=== PATIENT | male | born 1945 | race Two or more races ===

== ENCOUNTER 2020-03-03 23:31 | Inpatient (IN) | payer MEDICARE, OTHER ==
[~2020-03-03] VITALS: Ht 154.9 cm; Wt 63.2 kg
--- NOTE | 2020-03-03 23:40 | NUR ---
PT AAOX2 TO NAME AND PLACE. [facility] FROM [facility] FOR EVALUATION OF COVID. PER PA PT WAS SAT 78 ON ROOM AIR UPON ARRIVAL, PLACED ON 2L NC SAT 92% NOW. ALSO, PER PA STATED THAT PT HAD A XRAY TODAY AND SHOWED PNEUMONIA. UPON ASSESSMENT PT HAS NO COMPLAINTS. PLACED ON MONITOR AND PULSE OX. VSS. SAT 97% ON 3L NC. EMT AT BEDSIDE FOR EKG.
--- NOTE | 2020-03-03 23:45 | NUR ---
CENTRAL COMMUNICATIONS SPECIALIST AT BEDSIDE FOR LAB COLLECTION.
--- NOTE | 2020-03-03 23:47 | NUR ---
URINE SENT TO LAB.
[2020-03-03] MEDS ORDERED: LIDOCAINE 2% JEL UROJET 10 ML MM ONE (23:48)
[2020-03-03] MEDS ORDERED: FERR325T23 PO (23:49)
[2020-03-03] MEDS ORDERED: FLUO20CA36 PO (23:49)
[2020-03-03] MEDS ORDERED: DILT60TA35 PO (23:49)
[2020-03-03] MEDS ORDERED: CEFE1FRO IV (23:49)
[2020-03-03] MEDS ORDERED: DIGO125T PO (23:49)
[2020-03-03] MEDS ORDERED: APIX2.5T PO (23:49)
[2020-03-03] MEDS ORDERED: LINA5TAB PO (23:49)
[2020-03-03] MEDS ORDERED: PANT40TA2 PO (23:49)
[2020-03-03] MEDS ORDERED: AMIO200T4 PO (23:49)
[2020-03-03 23:59] LABS: BASOPHILS # (AUTO) 0.1 /CMM (0.0-0.2); BASOPHILS % (AUTO) 1.3 % (0.0-2.0); EOSINOPHILS % (AUTO) 0.2 % (0.0-6.0); HEMATOCRIT 38 % (39-51); HEMOGLOBIN 12.1 g/dL (13.5-17.5); LYMPHOCYTES # (AUTO) 0.4 /CMM (0.8-4.8); LYMPHOCYTES % (AUTO) 4.3 % (20.0-44.0); MEAN CORPUSCULAR HGB CONC 32 g/dl (31.0-36.0); MEAN CORPUSCULAR VOLUME 94 fL (80-96); MONOCYTES # (AUTO) 0.4 /CMM (0.1-1.30); MONOCYTES % (AUTO) 4.6 % (2.0-12.0); NEUTROPHILS # (AUTO) 7.7 /CMM (1.8-8.9); NEUTROPHILS % (AUTO) 89.6 % (43.0-81.0); PLATELET COUNT (AUTO) 215 /CMM (150-450); RED BLOOD CELL COUNT(AUTO) 4.09 MIL/uL (4.5-6.0); WHITE BLOOD COUNT (AUTO) 8.6 K/uL (4.3-11.0)
[2020-03-04 00:06] LABS: CALCIUM, SERUM 8.8 mg/dL (8.5-10.1); CARBON DIOXIDE 24 mmol/L (21-32); CHLORIDE 107 mmol/L (98-107); CREATININE 2.1 mg/dL (0.6-1.3); GLUCOSE 157 mg/dL (74-106); POTASSIUM 4.5 mmol/L (3.5-5.1); SODIUM SERUM 140 mmol/L (136-145); UREA NITROGEN, BLOOD 73 mg/dL (7-18)
[2020-03-04 00:10] LABS: BILIRUBIN,URINE Negative (NEGATIVE); BLOOD, URINE Negative Ery/uL (NEGATIVE); COLOR,URINE Yellow (YELLOW); KETONES,URINE Negative (NEGATIVE); LEUKOCYTE ESTERASE ,URINE Negative (NEGATIVE); NITRITE, URINE Negative (NEGATIVE); PH,URINE 5.5 (5.0-8.0); PROTEIN,URINE 30 mg/dl (NEGATIVE); UGLUCOSE Negative (NEGATIVE); UROBILINOGEN,URINE 0.2 EU/dL (0.2)
--- NOTE | 2020-03-04 00:12 | NUR ---
COVID TEST SENT TO LAB
[2020-03-04 00:13] LABS: APPEARANCE,URINE SLIGHTLY CLOUDY (CLEAR)
[2020-03-04 00:14] LABS: ALANINE AMINOTRANSFERASE 73 U/L (12-78); ALBUMIN 2.2 g/dL (3.4-5.0); ALKALINE PHOSPHATASE 99 U/L (46-116); ASPARTATE AMINOTRANSFERASE 67 U/L (15-37); BILIRUBIN,DIRECT 0.1 mg/dL (0.0-0.2); BILIRUBIN,TOTAL 0.3 mg/dL (0.2-1.0); TOTAL PROTEIN, SERUM 6.4 g/dL (6.4-8.2)
--- NOTE | 2020-03-04 00:24 | NUR ---
Patient is resting comfortably in bed. Easily aroused. VSS.
[2020-03-04 00:45] LABS: BACTERIA,URINE Few /HPF (None Seen); SQUAMOUS EPITHELIAL CELL,UR Rare /HPF (None Seen)
[2020-03-04] MEDS ORDERED: VANCOMYCIN 1 GM in IV D5W 250 ML IV ONE (01:30)
[2020-03-04] MEDS ORDERED: PIPERACILLIN /TAZOBACTAM 3.375 G in IV D5W 50 ML IV ONE (01:30)
[2020-03-04] MEDS ORDERED: VANCOMYCIN 1 GM VIAL ONE (01:38)
[2020-03-04] MEDS ORDERED: PIPERACILLIN /TAZOBACTAM 3.375 G VIAL IV ONE (01:38)
--- NOTE | 2020-03-04 02:12 | NUR ---
REPORT GIVEN TO KSENIA ORELLANA FOR RETA
--- NOTE | 2020-03-04 02:18 | NUR ---
PT TRANSFERED PER ACLS PROTOCOL
[2020-03-04 02:45] VITALS: BP 113/70
--- NOTE | 2020-03-04 02:45 | NUR ---
EARLENE RN NOTE PATIENT ARRIVED TO UNIT AROUND THIS TIME VIA GURNEY. PATIENT IS AWAKE, ALERT, ORIENTED X2. ABLE TO MAKE NEEDS KNOWN. SPEECH IS CLEAR. COOPERATIVE, EXHIBITS EPISODES OF ANGER. BREATHING IS EVEN AND NON LABORED. NO SOB NOTED AT THIS TIME. ON O2 2 LPM VIA NC. IV SITE ON RIGHT HAND, PATENT. CAPILLARY REFILL < 3 SECONDS. ABDOMEN IS SOFT AND NON TENDER. PATIENT IS INCONTINENT. BILATERAL LOWER EXTREMITIES ARE RIGID. UNABLE TO AMBULATE. BILATERAL ARMS NOTED WITH MULTIPLE RED/PURPLE SPOTS OF DISCOLORATION. NO C/O OF PAIN. BED LOWERED TO LOW POSITION FOR SAFETY. CALL LIGHT IS WITHIN EASY REACH. WILL CONTINUE TO MONITOR.
[2020-03-04] MEDS ORDERED: IV NS 0.9% 1,000 ML IV ONE (03:30)
[2020-03-04 04:00] VITALS: BP_SYST 113; BP_SYST 120; BP_DIAS 58; BP_DIAS 68
[2020-03-04 06:17] LABS: BASOPHILS % (AUTO) 0.3 % (0.0-2.0); EOSINOPHILS % (AUTO) 0.1 % (0.0-6.0); HEMATOCRIT 43 % (39-51); HEMOGLOBIN 13.2 g/dL (13.5-17.5); LYMPHOCYTES # (AUTO) 0.3 /CMM (0.8-4.8); LYMPHOCYTES % (AUTO) 2.9 % (20.0-44.0); MEAN CORPUSCULAR HGB CONC 31 g/dl (31.0-36.0); MEAN CORPUSCULAR VOLUME 95 fL (80-96); MONOCYTES # (AUTO) 0.4 /CMM (0.1-1.30); MONOCYTES % (AUTO) 3.5 % (2.0-12.0); NEUTROPHILS # (AUTO) 9.7 /CMM (1.8-8.9); NEUTROPHILS % (AUTO) 93.2 % (43.0-81.0); PLATELET COUNT (AUTO) 202 /CMM (150-450); RED BLOOD CELL COUNT(AUTO) 4.49 MIL/uL (4.5-6.0); WHITE BLOOD COUNT (AUTO) 10.4 K/uL (4.3-11.0)
[2020-03-04 06:30] LABS: CARBON DIOXIDE 23 mmol/L (21-32); CHLORIDE 105 mmol/L (98-107); CREATININE 2.2 mg/dL (0.6-1.3); GLUCOSE 211 mg/dL (74-106); POTASSIUM 4.2 mmol/L (3.5-5.1); SODIUM SERUM 139 mmol/L (136-145); UREA NITROGEN, BLOOD 74 mg/dL (7-18)
--- NOTE | 2020-03-04 06:46 | NUR ---
EARLENE RN CLOSING NOTE PATIENT REMAINED STABLE SINCE ADMISSION. ALL NEEDS ATTENDED AND MET. NO SIGNIFICANT CHANGES NOTED. WILL ENDORSE TO AM SHIFT RN FOR CONTINUATION OF CARE.
[2020-03-04] MEDS ORDERED: FEE PK DOSING 1 MIN EA MC ONE (07:23)
--- NOTE | 2020-03-04 07:51 | NUR ---
RN TELE1- DOC MEDICATION TALKED FACE TO FACE WITH DR. DORSEY IN REGARDS TO MEDICATION.
[2020-03-04 08:00] VITALS: BP 111/36
[2020-03-04] MEDS ORDERED: DEXTROSE 50%-WATER 50 ML DISP.SYRIN IV PRN (08:00)
[2020-03-04] MEDS ORDERED: Medication Not On Formulary EA (Cefepime Hcl/Dextrose, Iso-Osm (Cefepime 1 Gm Injection) IV SCH (09:00)
[2020-03-04] MEDS: FERROUS SULFATE (325 MG) 325 MG/TAB TABLET PO SCH (09:07)
[2020-03-04] MEDS: LINAGLIPTIN 5 MG TABLET PO SCH (09:07)
[2020-03-04] MEDS: PANTOPRAZOLE 40 MG TABLET.DR PO SCH (09:07)
[2020-03-04] MEDS: FLUOXETINE HCL 20 MG CAPSULE PO SCH (09:08)
[2020-03-04] MEDS: AMIODARONE HCL 200 MG TABLET PO SCH (09:09)
[2020-03-04] MEDS: APIXABAN 2.5 MG TABLET PO SCH ×2 (09:34→17:04)
[2020-03-04] MEDS: PIPERACILLIN /TAZOBACTAM 3.375 G in IV D5W 50 ML IV SCH ×4 (09:36→23:32)
[2020-03-04 12:00] VITALS: BP 124/46
[2020-03-04] MEDS: BLOOD SUGAR DIAGNOSTIC 1 EACH STRIP IN SCH ×3 (12:15→21:02)
[2020-03-04] MEDS: DILTIAZEM HCL 30 MG TABLET PO SCH ×3 (12:16→23:42)
[2020-03-04] MEDS ORDERED: DIGOXIN 0.125 MG TABLET PO SCH (13:00)
[2020-03-04 13:40] LABS: C-REACTIVE PROTEIN 23.8 mg/dL (0.0-0.9)
[2020-03-04 16:00] VITALS: BP 103/48
--- NOTE | 2020-03-04 17:00 | NUR ---
WEB PRESS ROLL TENDER PATIENT FOUND, WITH IV IN HIS LANDS PATIENT WAS BLEEDING FROM IV SIGHT. PATIENT DENIES PULLING IV OUT . PATIENT HARD STICK ATTEMPTED 2X TIMES. REQUESTING MID LINE FROM CHARGE NURSE AND FREIGHT CLAIM INVESTIGATOR
--- NOTE | 2020-03-04 18:30 | NUR ---
TIGHT BARREL INSPECTOR NO CHANGE IN PATIENT CONDITION AT THIS TIME PATIENT REMAIN STABLE PATIENT DOES NOT HAVE A IV PLACE PATIENT PULLED IV . REQUESTED FOR MID LINE INSERTION ORDERS ORDERS, HOUSE SUP AWARE, CHARGE NURSE AWARE. BED LOCKED LOWEST POSITION CALL LIGHT WITH IN REACH ALL SAFETY MEASURE IMPLEMENTED PER HOSPITAL POLICY
[2020-03-04 20:00] VITALS: BP 90/39
--- NOTE | 2020-03-04 20:20 | NUR ---
TELE-1/TECHNICIAN HELPER INSTRUMENT MIDLINE NURSE PLACED MIDLINE LEFT UPPER ARM. PT TOLERATED WELL WILL CONTINUE TO MONITOR.
[2020-03-04] MEDS: INSULIN REGULAR, HUMAN 100 UNIT/ML 3 ML VIAL SQ PRN (21:09)
--- NOTE | 2020-03-04 22:36 | NUR ---
TELE-1/GIZZARD SKIN REMOVER REPORT TO JANET RN FOR CONT OF CARE.
--- NOTE | 2020-03-04 22:48 | NUR ---
RECEIVED REPORT TO CRUZITO MARTÍNEZ FOR RETA
--- NOTE | 2020-03-04 23:20 | NUR ---
2320 DR NICKY MARMOLEJO MADE AWARE OF PATIENT'S EPISODES OF TRYING TO PULL OUT LINES INCLUDING NEW MIDLINE WITH ORDER TO APPLY BILATERAL SOFT WRIST RESTRAINTS. ORDER NOTED AND CARRIED OUT.
[2020-03-05] VITALS (18 sets, daily range): BP systolic 60–105; BP diastolic 17–78
[2020-03-05] MEDS: VANCOMYCIN 0.75 GM in IV D5W 250 ML IV SCH (01:04)
[2020-03-05] MEDS: PIPERACILLIN /TAZOBACTAM 3.375 G in IV D5W 50 ML IV SCH ×2 (05:07→12:39)
[2020-03-05] MEDS: DILTIAZEM HCL 30 MG TABLET PO SCH ×4 (05:53→23:20)
[2020-03-05 06:36] LABS: BASOPHILS % (AUTO) 0.1 % (0.0-2.0); HEMATOCRIT 35 % (39-51); HEMOGLOBIN 10.8 g/dL (13.5-17.5); LYMPHOCYTES # (AUTO) 0.4 /CMM (0.8-4.8); LYMPHOCYTES % (AUTO) 1.5 % (20.0-44.0); MEAN CORPUSCULAR HGB CONC 31 g/dl (31.0-36.0); MEAN CORPUSCULAR VOLUME 95 fL (80-96); MONOCYTES # (AUTO) 0.3 /CMM (0.1-1.30); MONOCYTES % (AUTO) 1.1 % (2.0-12.0); NEUTROPHILS # (AUTO) 23.4 /CMM (1.8-8.9); NEUTROPHILS % (AUTO) 97.3 % (43.0-81.0); PLATELET COUNT (AUTO) 184 /CMM (150-450); RED BLOOD CELL COUNT(AUTO) 3.73 MIL/uL (4.5-6.0); WHITE BLOOD COUNT (AUTO) 24.1 K/uL (4.3-11.0)
--- NOTE | 2020-03-05 06:54 | NUR ---
RN CLOSING NOTES PT SLEEPING ON BED NO SIGN AND SYMPTOMS OF RESPIRATORY DISTRESS SPO2>92%. ON BILATERAL RESTRAINTS, ON TELE MONITOR WITH READING SR 80'S, ALL NEEDS ATTENDED DROPLET ISOLATION MAINTAINED TO R/O COVID 19 PENDING RESULTS SAFETY MEASURE MAINTAINED CALL LIGHT WITHIN REACH WILL ENDORSED TO AM SHIFT NURSE
[2020-03-05 06:56] LABS: BAND % (MANUAL) 22 % (0.0-5.0); LYMPHOCYTES % (MANUAL) 2 % (16-48); METAMYELOCYTES % 1 % (0-0); MONOCYTES % (MANUAL) 2 % (0-11.0); MYELOCYTES % 1 % (0-0); NEUTROPHILS % (MANUAL) 72 (42-76)
[2020-03-05 07:07] LABS: ALANINE AMINOTRANSFERASE 75 U/L (12-78); ALBUMIN 1.9 g/dL (3.4-5.0); ALKALINE PHOSPHATASE 79 U/L (46-116); ASPARTATE AMINOTRANSFERASE 84 U/L (15-37); BILIRUBIN,TOTAL 0.5 mg/dL (0.2-1.0); CALCIUM, SERUM 8.5 mg/dL (8.5-10.1); CARBON DIOXIDE 21 mmol/L (21-32); CHLORIDE 103 mmol/L (98-107); CREATININE 3.2 mg/dL (0.6-1.3); GLUCOSE 126 mg/dL (74-106); MAGNESIUM 1.8 mg/dL (1.8-2.4); PHOSPHORUS 5.3 mg/dL (2.5-4.9); POTASSIUM 4.3 mmol/L (3.5-5.1); SODIUM SERUM 139 mmol/L (136-145); TOTAL PROTEIN, SERUM 6.2 g/dL (6.4-8.2)
[2020-03-05 07:16] LABS: UREA NITROGEN, BLOOD 82 mg/dL (7-18)
[2020-03-05] MEDS: BLOOD SUGAR DIAGNOSTIC 1 EACH STRIP IN SCH ×4 (09:02→23:20)
[2020-03-05] MEDS: PANTOPRAZOLE 40 MG TABLET.DR PO SCH (09:51)
[2020-03-05] MEDS: FLUOXETINE HCL 20 MG CAPSULE PO SCH (09:51)
[2020-03-05] MEDS: LINAGLIPTIN 5 MG TABLET PO SCH (09:51)
[2020-03-05] MEDS: FERROUS SULFATE (325 MG) 325 MG/TAB TABLET PO SCH (09:51)
[2020-03-05] MEDS: APIXABAN 2.5 MG TABLET PO SCH ×2 (09:51→17:56)
[2020-03-05] MEDS: AMIODARONE HCL 200 MG TABLET PO SCH (09:54)
[2020-03-05] MEDS: INSULIN REGULAR, HUMAN 100 UNIT/ML 3 ML VIAL SQ PRN ×2 (09:56→18:43)
--- NOTE | 2020-03-05 09:57 | NUR ---
WOUND CARE CONSULT: REVIEWED CHART AND NURSING DOCUMENTATION INCLUDING PHOTOS FROM ADMISSION WHICH SHOW PURPLE DISCOLORATION TO BILATERAL ARMS. RECOMMENDATIONS MADE FOR SKIN PROTECTION. DISCUSSED WITH NURSING STAFF. CURRENT SHEILA SCORE IS 13. WILL SEE PRN. VOGT IN AGREEMENT WITH PLAN OF CARE.
[2020-03-05] MEDS ORDERED: Z GUARD REMEDY 2 OZ OINT TP PRN (10:00)
[2020-03-05] MEDS: Z GUARD REMEDY 2 OZ OINT TP SCH (10:31)
--- NOTE | 2020-03-05 11:03 | NUR ---
LIFE SKILLS INSTRUCTOR NOTES RECEIVED REPORT FROM [facility] FOR RETA.
--- NOTE | 2020-03-05 13:21 | NUR ---
RN NOTES ACCUCHECK 137 MG/DL, NO INSULIN GIVEN AT THIS TIME, PATIENT IS NPO.
[2020-03-05 13:46] LABS: THYROID STIMULATING HORMONE 0.858 uIU/mL (0.358-3.74)
[2020-03-05] MEDS: DOXYCYCLINE 100 MG in IV NS 0.9% 100 ML IV SCH (17:53)
[2020-03-05] MEDS ORDERED: MEROPENEM IV SCH (18:00)
[2020-03-05] MEDS ORDERED: NS 0.9% IV SCH (18:00)
--- NOTE | 2020-03-05 19:07 | NUR ---
BUNCHER HAND NOTE PATIENT RESTING COMFORTABLY, AOX 2, CONFUSED, ON 2 L O2 NASAL CANULA,SINUS RHYTHM JR HIGH 70s, NO SIGNS OF PAIN,BENNIE MIDLINE FLUSHES WELL, SITE CLEAR. TURNED AND REPOSITIONED Q2 HOURS, PM CARE DONE. ALL NEEDS MET AT THIS TIME. ALL DUE MEDS GIVEN. CALL LIGHT WITHIN REACH. SAFETY MEASURES IN PLACE, ENDORSED TO NEXT SHIFT FOR RETA.
--- NOTE | 2020-03-05 20:00 | NUR ---
RN NOTES RECEIVED PT, AWAKE,SB ON TELE MONITOR HR-50'S, ON BILATERAL SOFT WRIST RESTRAINT, NOTICED BLOOD PRESSURE WAS LOW 83/30, SIDERAILS UPX2, CONTINUE TO MONITOR
--- NOTE | 2020-03-05 20:30 | NUR ---
RN NOTES RECHECK PATIENT BLOOD PRESSURE , BP-82/58, WILL CALL THE PRIMARY DOCTOR TO INFORM PATIEN BLOOD PRESSURE
[2020-03-05] MEDS ORDERED: DOXYCYCLINE 100 MG in IV NS 0.9% 100 ML IV SCH (21:00)
--- NOTE | 2020-03-05 21:00 | NUR ---
RN NOTES PATIENT HR WAS DROPPING TO 30'S WENT INSIDE OF PATIENTS ROOM AND FOUND PT. IS UNRESPONSIVE, RAPID RESPONSE WAS CALLED,
--- NOTE | 2020-03-05 21:10 | NUR ---
RN NOTES TREE EXPERT TEAM CAME AND PATIENT WENT TO ASYSTOLE, CODE BLUE WAS CALLED
--- NOTE | 2020-03-05 21:13 | NUR ---
RN NOTES EPI WAS GIVEN BY THE ICU CHARGE NURSE HALEY
--- NOTE | 2020-03-05 21:15 | NUR ---
RN NOTES ATROPINE WAS GIVEN , PT HAS A PULSE HR-39, BLOOD PRESSURE 80/32, JUNCTIONAL IN RHYTHM
--- NOTE | 2020-03-05 21:18 | NUR ---
RN NOTES NS BOLUS STARTED JUNCTIONAL IN RHYTHM, BP 82/34
--- NOTE | 2020-03-05 21:21 | NUR ---
RN NOTES ER DOCTOR INTUBATE THE PATIENT HR-48, JUNCTIONAL IN RHYTHM, BP 77/33
[2020-03-05] MEDS ORDERED: FENTANYL CITRAT IV 2,500 MCG in IV NS 0.9% 200 ML IV STA (21:26)
[2020-03-05] MEDS ORDERED: MIDAZOLAM HCL 100 MG in IV NS 0.9% 80 ML IV STA (21:26)
--- NOTE | 2020-03-05 21:28 | NUR ---
RN NOTES PT. WAS INTUBATED, ET TUBE SIZE 7.5, JUNCTIONAL HR-52, BP 73/31, O2 92%
[2020-03-05] MEDS ORDERED: PROPOFOL 100 ML IV PRN (21:30)
[2020-03-05] MEDS ORDERED: NOREPINEPHRINE 32 MG in IV NS 0.9% 218 ML IV PRN (21:30)
[2020-03-05] MEDS ORDERED: NOREPINEPHRINE 32 MG in IV NS 0.9% 218 ML IV STA (21:33)
--- NOTE | 2020-03-05 21:34 | NUR ---
RN NOTES CODE ENDED, JUNCTIONAL RHYTHM, BP 61/17, O2 SAT-95%, VENT SETTING TV-500, AC-12, FIO2-100%, NO PEEP
--- NOTE | 2020-03-05 21:40 | NUR ---
RN NOTES ER DOCTOR INSERTED THE IJ
[2020-03-05] MEDS ORDERED: NOREPINEPHRINE 4 MG/4 ML AMPUL IV ONE (21:41)
--- NOTE | 2020-03-05 21:42 | NUR ---
RT at 2099, rapid response was called for pt in room 114-2. at 2109, code blue was called. compressions was performed and pt was placed on nrb because is a rule out for covid. dr arrived and pt with intubated with 7.5 ett at 22 cm at the lip. vent settings were AC 12 500 100%. bilateral breath sounds heard post intubation. ETT secured with anchor fast.
--- NOTE | 2020-03-05 21:45 | NUR ---
RN NOTES LEVOPHED STARTED 0.1 MCG BP-61/37
--- NOTE | 2020-03-05 21:50 | NUR ---
RN NOTES LEVOPHED INCREASED TO 0.2MCG BP 64/26
[2020-03-05] MEDS ORDERED: PROPOFOL 100 ML ONE (21:54)
--- NOTE | 2020-03-05 21:55 | NUR ---
RN NOTES LEVOPHED INCREASED TO 0.3MCG BP 64/23
[2020-03-05] MEDS ORDERED: NS 0.9% IV PRN (22:00)
[2020-03-05] MEDS ORDERED: NOREPINEPHRINE IV PRN (22:00)
[2020-03-05] MEDS ORDERED: PANTOPRAZOLE 40 MG VIAL IV SCH (22:00)
--- NOTE | 2020-03-05 22:15 | NUR ---
RN/ICU-TRANSFERRED TO ICU VIA BED FROM TELE 1 PER ACLS PROTOCOL , S/P CODE BLUE FOR CARDIOPULMONARY ARREST. NURSING FOCUS:ALTERED CARDIAC TISSUE PERFUSION R/T DIAGNOSIS. R/O COVID. ON CONTACT AND SPECIAL DROPLET PRECAUTIONS,ROUTINE ICU ADMISSION CARE INITIATED. ON THE VENT PER ETT W/ INITIAL VENT SETTINGS: AC-12, VT-500, FIO2-100%, HOOKED UP TO THE STRAIGHTENER HAND W/ HR-78/MIN HR SR, BP-88/51, ON .5MCG/KG/MIN. OF LEVOPHED DRIP. WILL TITRATE ACCORDINGLY TO KEEP SBP>90. ON DIPRIVAN DRIP AT 10MCG/KG/MIN, POST SEDATED W/ SAS-3, W/ OCCASIONAL AGITATION, WITH SALINA. SOFT WRIST RESTRAINTS ON PER PROTOCOL. AFEBRILE. PT. IS A FULL CODE. NO S/S OF PAIN OR DISTRESS.
[2020-03-05] MEDS ORDERED: NOREPINEPHRINE IV STA (22:34)
[2020-03-05] MEDS ORDERED: NS 0.9% IV STA (22:34)
--- NOTE | 2020-03-05 22:50 | NUR ---
RN NOTES PT WAS TRANSFERRED TO ICU
--- NOTE | 2020-03-05 23:00 | NUR ---
RN/ICU- PT. REMAINS CRITICALLY ILL, ON THE VENT PER ETT, ON DIPRIVAN DRIP AND LEVOPHED DRIP, TITRATED ACCORDINGLY PER PROTOCOL. REPORT GIVEN TO DIOGENES MARTÍNEZ.
[2020-03-05] MEDS ORDERED: NOREPINEPHRINE 8 MG in IV NS 0.9% 218 ML IV PRN (23:15)
--- NOTE | 2020-03-05 23:23 | NUR ---
RT NOTE ABG taken and critical results given to Ordering Physician. RR increased to 16 and Tidal Volume increased to 600 per ordering physician req. Will continue to monitor. Addendum: 03/06/20 at 0025 by BULMARO HANNAH RT Amended: Links added.
[2020-03-05 23:30] LABS: ABG BASE EXCESS -15.2 mmol/L; ABG OXYGEN SATURATION 91.4 % (92.0-98.5); ABG PCO2 46.6 mmHg (35.0-45.0); ABG PH 7.098 (7.350-7.450); ABG PO2 72.9 mmHg (75.0-100.0); AaDO2 593.5 mmHg; COHb 0.7 % (0.5-1.5); MetHb 0.3 % (0.0-1.5); O2Hb 90.5 % (94.0-97.0); SITE, ABG Left Radial
[2020-03-06] VITALS (61 sets, daily range): BP systolic 58–179; BP diastolic 15–152
--- NOTE | 2020-03-06 | NUR ---
ICU/INVESTIGATOR CLAIMS RECEIVED PT ORALLY INTUBATED WITH 7.5 ETT 23CM AT THE LIP AC 16 TV 600 FIO2 100% 0 PEEP. PT TOLERATING WELL. RIGHT IJ TLC INFUSING PROPOFOL AND LEVOPHED (SEE IV SPREADSHEET) LEFT UA MIDLINE FLUSHED AND PATENT. I PLACED CURRY CATH VIA STERILE PROCEDURE 5CC CLOUDY YELLOW URINE RETURNED. HALEY GIRLS TENNIS COACH PLACED NASOGASTRIC TUBE RIGHT NARES 70CM CONFIRMED BY AUSCULTATION. BED BATH GIVEN ALL LINENS CHANGED. WILL CONTINUE TO MONITOR.
--- NOTE | 2020-03-06 01:05 | NUR ---
ICU/CANNONEER MATI VILLELA PAGED FOR LOW URINE OUTPUT. NEW ORDERS RECEIVED AND CARRIED OUT. WILL CONTINUE TO MONITOR.
[2020-03-06] MEDS: IV NS 0.9% 1,000 ML IV PRN ×2 (01:16→15:23)
--- NOTE | 2020-03-06 01:36 | NUR ---
ICU/RECREATION THERAPIST CRITICAL LAB RESULTS PT POSITIVE FOR COVID-19. RESULTS CALLED TO MATI PENAP. WILL CONTINUE TO MONITOR.
[2020-03-06] MEDS: VANCOMYCIN 0.75 GM in IV D5W 250 ML IV SCH (02:00)
[2020-03-06] MEDS ORDERED: NOREPINEPHRINE 8 MG in IV NS 0.9% 218 ML IV PRN (02:00)
--- NOTE | 2020-03-06 02:08 | NUR ---
MED NOTE: VANCO IS 22. DOSE HELD. AUTOMOBILE DRIVERS HALEY MADE AWARE. WILL ENDORSE TO AM SHIFT.
[2020-03-06] MEDS ORDERED: NOREPINEPHRINE IV PRN (02:30)
[2020-03-06] MEDS ORDERED: NS 0.9% IV PRN (02:30)
[2020-03-06] MEDS ORDERED: NOREPINEPHRINE 4 MG/4 ML AMPUL IV ONE (02:33)
[2020-03-06 02:50] LABS: ABG OXYGEN SATURATION 93.3 % (92.0-98.5); ABG PO2 70.6 mmHg (75.0-100.0); AaDO2 608.4 mmHg; COHb 0.4 % (0.5-1.5); MetHb 0.3 % (0.0-1.5); O2Hb 92.6 % (94.0-97.0); PEEP,BG 0 cm H2O; SITE, ABG Right Brachial; VENT MODE, BG AC 16 600 100% +0
--- NOTE | 2020-03-06 02:58 | NUR ---
ICU/GOLD LEAF LABORER BLOOD GAS RESULTS RELAYED TO MATI SQUIRES. VENT CHANGES ORDERED AND CARRIED OUT.
--- NOTE | 2020-03-06 03:06 | NUR ---
MED NOTE: WAX PUMPER RENEE RECEIVED ORDER TO DOUBLE CONCENTRATION OF LEVOPHED 16MG IN 250 NS. CARRIED OUT.
[2020-03-06 05:18] LABS: BASOPHILS # (AUTO) 0.2 /CMM (0.0-0.2); BASOPHILS % (AUTO) 0.7 % (0.0-2.0); HEMATOCRIT 34 % (39-51); HEMOGLOBIN 10.2 g/dL (13.5-17.5); LYMPHOCYTES # (AUTO) 0.3 /CMM (0.8-4.8); LYMPHOCYTES % (AUTO) 1.1 % (20.0-44.0); MEAN CORPUSCULAR HGB CONC 30 g/dl (31.0-36.0); MEAN CORPUSCULAR VOLUME 95 fL (80-96); MONOCYTES # (AUTO) 0.4 /CMM (0.1-1.30); MONOCYTES % (AUTO) 1.6 % (2.0-12.0); NEUTROPHILS # (AUTO) 23.8 /CMM (1.8-8.9); NEUTROPHILS % (AUTO) 96.6 % (43.0-81.0); PLATELET COUNT (AUTO) 202 /CMM (150-450); RED BLOOD CELL COUNT(AUTO) 3.57 MIL/uL (4.5-6.0); WHITE BLOOD COUNT (AUTO) 24.6 K/uL (4.3-11.0)
[2020-03-06 05:37] LABS: ALANINE AMINOTRANSFERASE 193 U/L (12-78); ALBUMIN 1.7 g/dL (3.4-5.0); ALKALINE PHOSPHATASE 96 U/L (46-116); ASPARTATE AMINOTRANSFERASE 369 U/L (15-37); BILIRUBIN,TOTAL 0.7 mg/dL (0.2-1.0); CALCIUM, SERUM 8.3 mg/dL (8.5-10.1); CARBON DIOXIDE 18 mmol/L (21-32); CHLORIDE 107 mmol/L (98-107); CREATININE 4.2 mg/dL (0.6-1.3); GLUCOSE 96 mg/dL (74-106); MAGNESIUM 1.9 mg/dL (1.8-2.4); PHOSPHORUS 6.4 mg/dL (2.5-4.9); POTASSIUM 4.5 mmol/L (3.5-5.1); SODIUM SERUM 141 mmol/L (136-145); TOTAL PROTEIN, SERUM 5.8 g/dL (6.4-8.2)
[2020-03-06 05:38] LABS: UREA NITROGEN, BLOOD 92 mg/dL (7-18)
[2020-03-06] MEDS: DILTIAZEM HCL 30 MG TABLET PO SCH ×3 (05:45→18:00)
--- NOTE | 2020-03-06 06:00 | NUR ---
RN NOTES CALLED PT. NEXT OF KIN CHLOÉ KAUFMAN BUT IT DIRECTLY GO TO THE VOICEMAIL, LEFT A MESSAGE TO PT.'S BROTHER MANDEEPCHLOÉ EARL TO CALL ICU. TRIED TO CALL PT.'S SISTER MANDEEP, DEANN MONTES BUT THE NUMBER SHE GAVE IT NOT A WORKING NUMBER
[2020-03-06 06:10] LABS: FERRITIN 4442 ng/mL (8-388)
--- NOTE | 2020-03-06 06:21 | NUR ---
ICU/DIRECTOR OF MECHANICAL ENGINEERING CRITICAL LACTIC ACID 2.2 CALLED TO MATI PENAP. NO NEW ORDERS.
[2020-03-06 06:39] LABS: C-REACTIVE PROTEIN 40.7 mg/dL (0.0-0.9)
--- NOTE | 2020-03-06 07:00 | NUR ---
BINDERY MACHINE SETTER NOTES RECEIVED PT FROM COMMUNICATIONS TOWER TECHNICIAN ORALLY INTUBATED WITH 7.5 ETT 23CM AT THE LIP AC 16 TV 600 FIO2 100% 0 PEEP. PT TOLERATING WELL. RIGHT IJ TLC INFUSING PROPOFOL AND LEVOPHED (SEE IV SPREADSHEET) LEFT UA MIDLINE FLUSHED AND PATENT. IV NS RUNNING AT 70 CC PER HOUR. ON ASSESSMENT ONLY 30ML OF URINE IN BAG. NG TUBE CLAMPED. PATIENT NPO. NO RESIDUALS. PATIENT KEPT CLEAN AND DRY. WILL CONTINUE TO MONITOR.
--- NOTE | 2020-03-06 07:20 | NUR ---
ICU/ELIGIBILITY SUPERVISOR ENDORSEMENT TO DEMETRIUS ORELLANA FOR CONT OF CARE.
[2020-03-06] MEDS: BLOOD SUGAR DIAGNOSTIC 1 EACH STRIP IN SCH ×4 (07:59→23:11)
[2020-03-06] MEDS: NOREPINEPHRINE 32 MG in IV NS 0.9% 218 ML IV PRN (08:14)
[2020-03-06] MEDS ORDERED: ACETAMINOPHEN 325 MG TABLET PO ONE (09:00)
[2020-03-06] MEDS ORDERED: MEROPENEM 500 MG in IV NS 0.9% 100 ML IV SCH (09:00)
[2020-03-06] MEDS ORDERED: ACETAMINOPHEN 650 MG/20.3 ML UDC NG ONE (09:02)
[2020-03-06 09:06] LABS: BILIRUBIN,DIRECT 0.3 mg/dL (0.0-0.2)
[2020-03-06] MEDS ORDERED: diphenhydrAMINE HCL 50 MG/ML VIAL IV ONE (09:30)
[2020-03-06] MEDS ORDERED: methylPREDNISolone SOD SUCC 40 MG/ML VIAL IV ONE (09:30)
[2020-03-06] MEDS ORDERED: TOCILIZUMAB 400 MG in IV NS 0.9% 80 ML IV ONE (09:35)
[2020-03-06] MEDS: FERROUS SULFATE (325 MG) 325 MG/TAB TABLET PO SCH (09:54)
[2020-03-06] MEDS: FLUOXETINE HCL 20 MG CAPSULE PO SCH (09:54)
[2020-03-06] MEDS: LINAGLIPTIN 5 MG TABLET PO SCH (09:54)
[2020-03-06] MEDS: APIXABAN 2.5 MG TABLET PO SCH ×2 (09:55→17:22)
[2020-03-06] MEDS: Z GUARD REMEDY 2 OZ OINT TP SCH (09:56)
[2020-03-06] MEDS: DOXYCYCLINE 100 MG in IV NS 0.9% 100 ML IV SCH ×2 (11:48→22:13)
[2020-03-06] MEDS: MEROPENEM 500 MG in IV NS 0.9% 50 ML IV SCH ×2 (12:09→22:12)
[2020-03-06 12:23] LABS: ABG OXYGEN SATURATION 96.1 % (92.0-98.5); ABG PCO2 31.3 mmHg (35.0-45.0); ABG PH 7.195 (7.350-7.450); ABG PO2 90.7 mmHg (75.0-100.0); AaDO2 410.8 mmHg; COHb 0.3 % (0.5-1.5); MetHb 0.3 % (0.0-1.5); O2Hb 95.5 % (94.0-97.0); PEEP,BG 8 cm H2O; SITE, ABG Right Brachial; VT, ABG 600 mL
[2020-03-06] MEDS: PROPOFOL 10MG/ML 50ML 50 ML IV PRN (13:16)
[2020-03-06] MEDS ORDERED: ATROPINE SULFATE 1 MG/10 ML DISP.SYRIN IV ONE (13:47)
[2020-03-06] MEDS ORDERED: EPINEPHRINE (1:10,000) SYRINGE 1 MG/10 ML DISP.SYRIN IVP ONE (13:47)
[2020-03-06] MEDS ORDERED: VANCOMYCIN 0.75 GM in IV D5W 250 ML IV SCH ×2 (14:00→21:00)
--- NOTE | 2020-03-06 14:00 | NUR ---
FILLING AND PACKING SUPERVISOR Notes Order for vanco not given. Per hand off patient had vanco trough of 22. Called pharmacy and asked them to place another order for vanco trough. Holding dose based on patient safety.
[2020-03-06 14:18] LABS: ABG BASE EXCESS -16.6 mmol/L; ABG OXYGEN SATURATION 94.9 % (92.0-98.5); ABG PCO2 26.6 mmHg (35.0-45.0); ABG PH 7.194 (7.350-7.450); ABG PO2 85.7 mmHg (75.0-100.0); AaDO2 420.8 mmHg; COHb 0.3 % (0.5-1.5); MetHb 0.1 % (0.0-1.5); O2Hb 94.5 % (94.0-97.0); PEEP,BG 5 cm H2O; SITE, ABG Right Radial; VT, ABG 650 mL
[2020-03-06] MEDS: PHENYLEPHRINE 50 MG in IV NS 0.9% 245 ML IV PRN ×2 (16:31→22:15)
--- NOTE | 2020-03-06 17:40 | NUR ---
RT NOTE: PATIENT RECEIVED ORALLY INTUBATED WITH 7.5 ETT SECURED AT 23 CM MID LIP LINE ON MECHANICAL VENT. VENT CHANGES MADE PER MD ORDERS. ALARMS VERIFIED AND AUDIBLE. VENT PLUGGED INTO RED OUTLET. AMBU BAG AT [facility].
[2020-03-06] MEDS: INSULIN REGULAR, HUMAN 100 UNIT/ML 3 ML VIAL SQ PRN ×2 (18:48→23:15)
--- NOTE | 2020-03-06 19:30 | NUR ---
BANKRUPTCY ASSISTANT. RCEIVED THE PT REST ON THE BED. ORALLY INTUBATED. SEDATED WITH DIPRIVAN. ETT 7.5,AC 16,LIP 23,TV 650,FIO2 75%,PEEP 8, SAT 96%. CREDIT RISK ANALYST SHOWING AFIB. CONTROLLED. FC PATENT. ANURIC. RT NARE NGT INTACT. PT IS NPO. IV RT IJ TRIPLE LUMEN. LT UPPER ARM MID LINE. DIPRIVAN 10MCG/KG/MIN, LEVOPHED 1MCG/KG/MIN,NS 70ML/H,TRAE 2MCG/KG/MIN, HOB ELEVATED, PT IS VERY UNSTABLE, DOES NOT FOLLOW COMMANDS. BLOOD PRESSURE IS 60S. WILL CONTINUE TO MONITOR.
--- NOTE | 2020-03-06 19:48 | NUR ---
PT RECEIVED ORALLY INTUBATED WITH 7.5 ET TUBE SECURED @ 23 CM LIP LINE. CUFF CHECKED VIA RUBBER WASHER. SX DONE, ET TUBE SECURED AND PATENT. NO RESPIRATORY DISTRESS. ALARMS ON AND AUDIBLE. WILL MONITOR T/O SHIFT.
--- NOTE | 2020-03-06 19:48 | NUR ---
PT RECEIVED ORALLY INTUBATED WITH 7.5 ET TUBE @ 23 CM LIP LINE. CUFF CHECKED VIA PRINCIPAL LAW CLERK. SX DONE, ET TUBE SECURED AND PATENT. NO RESPIRATORY DISTRESS. ALARMS ON AND AUDIBLE. WILL MONITOR T/O SHIFT.
--- NOTE | 2020-03-06 21:00 | NUR ---
STAY CUTTER.NOTIFIED MD ANDREA PT CODE STATUS,
[2020-03-06] MEDS ORDERED: VASOPRESSIN INJ 40 UNIT in IV NS 0.9% 38 ML IV PRN (22:00)
--- NOTE | 2020-03-06 22:02 | NUR ---
VICE PRESIDENT REGULATORY, BLOOD PRESSURE IS 70/40.LEVOPHED AND TRAE MAX OUT. .SPOKE WITH PT SISTER DEANN. CODE STATUS CHANGED, NOW PT IS DNR. WILL CONTINUE TO MONITOR.
[2020-03-06] MEDS: PANTOPRAZOLE 40 MG VIAL IV SCH (22:12)
[2020-03-07] VITALS (73 sets, daily range): BP systolic 53–149; BP diastolic 27–77
--- NOTE | 2020-03-07 01:59 | NUR ---
SILK SCREEN PRINTER MACHINE. PT ON LEVO AND TRAE. HEART RATE IS 55, CARDIZEM NOT GIVEN.
[2020-03-07] MEDS: PHENYLEPHRINE 50 MG in IV NS 0.9% 245 ML IV PRN ×2 (03:23→08:22)
--- NOTE | 2020-03-07 03:25 | NUR ---
horticulturalist.. remaining same vent setting tolerated well. sat 98%,cardiac exercise specialist showing nsr. ty ngt clamed, hob elevated . afebrile. will continue to monyor vitals. will continu ti
[2020-03-07] MEDS ORDERED: VASOPRESSIN INJ 20 UNIT/ML VIAL ONE (05:06)
[2020-03-07 05:37] LABS: ALANINE AMINOTRANSFERASE 232 U/L (12-78); ALKALINE PHOSPHATASE 130 U/L (46-116); ASPARTATE AMINOTRANSFERASE 547 U/L (15-37); B-TYPE NATRIURETIC PEPTIDE 17228 PG/ML (0-125); CALCIUM, SERUM 7.4 mg/dL (8.5-10.1); CARBON DIOXIDE 13 mmol/L (21-32); CHLORIDE 107 mmol/L (98-107); CREATININE 4.9 mg/dL (0.6-1.3); GLUCOSE 195 mg/dL (74-106); MAGNESIUM 1.8 mg/dL (1.8-2.4); PHOSPHORUS 6.7 mg/dL (2.5-4.9); POTASSIUM 5.1 mmol/L (3.5-5.1); SODIUM SERUM 139 mmol/L (136-145); TOTAL PROTEIN, SERUM 4.9 g/dL (6.4-8.2)
[2020-03-07 05:45] LABS: BASOPHILS # (AUTO) 0.1 /CMM (0.0-0.2); BASOPHILS % (AUTO) 0.4 % (0.0-2.0); EOSINOPHILS % (AUTO) 0.1 % (0.0-6.0); HEMATOCRIT 28 % (39-51); HEMOGLOBIN 8.7 g/dL (13.5-17.5); LYMPHOCYTES # (AUTO) 0.2 /CMM (0.8-4.8); LYMPHOCYTES % (AUTO) 0.9 % (20.0-44.0); MEAN CORPUSCULAR HGB CONC 31 g/dl (31.0-36.0); MEAN CORPUSCULAR VOLUME 95 fL (80-96); MONOCYTES % (AUTO) 4.8 % (2.0-12.0); NEUTROPHILS % (AUTO) 93.8 % (43.0-81.0); PLATELET COUNT (AUTO) 151 /CMM (150-450); RED BLOOD CELL COUNT(AUTO) 2.98 MIL/uL (4.5-6.0); WHITE BLOOD COUNT (AUTO) 21.3 K/uL (4.3-11.0)
--- NOTE | 2020-03-07 05:48 | NUR ---
curriculum assistant principal blood pressure 60/35. vaso drip started
[2020-03-07 05:50] LABS: FERRITIN 7234 ng/mL (8-388)
[2020-03-07 05:52] LABS: ALBUMIN 1.4 g/dL (3.4-5.0)
[2020-03-07 05:53] LABS: UREA NITROGEN, BLOOD 92 mg/dL (7-18)
[2020-03-07] MEDS: IV NS 0.9% 1,000 ML IV PRN (05:58)
[2020-03-07] MEDS: DILTIAZEM HCL 30 MG TABLET PO SCH ×4 (06:00→17:27)
[2020-03-07 06:13] LABS: C-REACTIVE PROTEIN 35.9 mg/dL (0.0-0.9)
--- NOTE | 2020-03-07 06:23 | NUR ---
OIL EXPELLER OPERATOR. BLOOD PRESSURE IS 50/25. MATI STEEL INSPECTOR CHEF DE CUISINE ORDERED NS 500ML BOLUS
[2020-03-07] MEDS ORDERED: IV NS 0.9% 500 ML IV ONE (06:30)
[2020-03-07] MEDS: FLUOXETINE HCL 20 MG CAPSULE PO SCH (07:39)
[2020-03-07] MEDS: FERROUS SULFATE (325 MG) 325 MG/TAB TABLET PO SCH (07:39)
[2020-03-07] MEDS: APIXABAN 2.5 MG TABLET PO SCH ×2 (07:39→17:00)
[2020-03-07] MEDS: LINAGLIPTIN 5 MG TABLET PO SCH (07:39)
--- NOTE | 2020-03-07 07:48 | NUR ---
agricultural services director received pt in bed awake, not alert does not follow, intubated on vent settings noted, iv access r ij patent good blood return and l ua picc patenet pt has jeff oligurinc, ng tube clamped held blood thinng med as pt has bruses all over and also skin bleeding, vent settings noticed dr. evans at bedside awaiting for further orders as pt condition is gaurded maxed pressors x3 sbp 60s to 80s iv bolus running as ordered by caustic cresylate shift superintendent rn, will continue to monitor.
[2020-03-07] MEDS: MEROPENEM 500 MG in IV NS 0.9% 50 ML IV SCH ×2 (07:55→21:30)
[2020-03-07] MEDS: BLOOD SUGAR DIAGNOSTIC 1 EACH STRIP IN SCH ×4 (07:59→21:31)
[2020-03-07] MEDS: Z GUARD REMEDY 2 OZ OINT TP SCH (08:00)
[2020-03-07] MEDS: methylPREDNISolone SOD SUCC 40 MG/ML VIAL IV SCH (08:07)
[2020-03-07 08:39] LABS: ABG BASE EXCESS -22.4 mmol/L; ABG OXYGEN SATURATION 91.3 % (92.0-98.5); ABG PCO2 21.1 mmHg (35.0-45.0); ABG PH 7.072 (7.350-7.450); ABG PO2 88.3 mmHg (75.0-100.0); AaDO2 316.3 mmHg; COHb 0.6 % (0.5-1.5); MetHb 0.3 % (0.0-1.5); O2Hb 90.5 % (94.0-97.0); SITE, ABG Left Radial; VENT MODE, BG AC 24 650 60%
[2020-03-07] MEDS: DOXYCYCLINE 100 MG in IV NS 0.9% 100 ML IV SCH ×2 (09:11→21:30)
[2020-03-07] MEDS ORDERED: SODIUM BICARBONATE SYR 50 MEQ/50 ML DISP.SYRIN IV STA (09:32)
--- NOTE | 2020-03-07 09:34 | NUR ---
CUT OFF SAW SET UP OPERATOR RECEIVED CALL FROM DR. SANDOVAL [facility] NOTIFIED HIM REGARDING FINDINGS ABG RESULTS ADVISED TO CONTACT HOSPITALIST FOR BICARB DRIP AND PUSH, DR. SUNITA TENA AT BEDSIDE ORDEREDS RECEIVED WILL CARRY OUT
[2020-03-07] MEDS: INSULIN REGULAR, HUMAN 100 UNIT/ML 3 ML VIAL SQ PRN ×4 (09:42→23:01)
[2020-03-07] MEDS: Sodium Bicarbonate 150 MEQ in IV D5W 1,000 ML IV PRN ×2 (10:37→18:58)
--- NOTE | 2020-03-07 12:15 | NUR ---
REAL ESTATE LEASING MANAGER CALLED PHARMACY REGARDING NO LEVOPHED IN THE MED ROOM DELEIVERED FOR PT PHARMACY ADVISED TO OVERRIDE FROM PIXES 8MG OVERRIDEN AND PUMP RECONFIGURED TO RECEIVE RIGHT DOSE.
[2020-03-07] MEDS ORDERED: NOREPINEPHRINE 8MG/250ML RTU 250 ML IV ONE (12:21)
[2020-03-07] MEDS: MUPIROCIN OINT 2% 22 GM TUBE SCH ×3 (12:27→21:30)
[2020-03-07] MEDS: PHENYLEPHRINE 100 MG in IV NS 0.9% 240 ML IV PRN (13:07)
[2020-03-07] MEDS: NOREPINEPHRINE 32 MG in IV NS 0.9% 218 ML IV PRN ×2 (14:49→22:30)
--- NOTE | 2020-03-07 15:21 | NUR ---
RT NOTE: PATIENT RECEIVED ORALLY INTUBATED WITH 7.5 ETT SECURED AT 23 CM MID LIP LINE ON MECHANICAL VENT. ALARMS VERIFIED AND AUDIBLE. INCREASED FI02 TO 75% DUE TO LOW SP02. VENT PLUGGED INTO RED OUTLET. AMBU BAG AT [facility].
--- NOTE | 2020-03-07 18:22 | NUR ---
CAMPER ASSEMBLER PT IN BED NO CHANGES IN PT CONDITION, PT IS OFF OF 2 PRESSORS AT THIS TIME ONLY LEVOPHED IS RUNNING ORDERED CONTACTED DR. SANDOVAL REGARDING PT PO MEDS BLOOD THINNERS AND AFIB MEDS ARE HELD ORDERED PT HAS BLEEDING FROM ARMS AND MAJOR BRUISING ON EXTREMITIES, PT IS INTUBATED VENT SETTINGS NOTICED PT CARE DONE AND NEEDS MEET SAFETY MEASURES TAKEN WILL GIVE REPORT TO PM NURSE FOR CONTINUITY OF CARE.
[2020-03-07] MEDS: PROPOFOL 10MG/ML 50ML 50 ML IV PRN (19:16)
[2020-03-07] MEDS: IV NS 0.9% 250 ML IV PRN (21:30)
[2020-03-07] MEDS: PANTOPRAZOLE 40 MG VIAL IV SCH (21:30)
[2020-03-08] VITALS (56 sets, daily range): BP systolic 73–162; BP diastolic 29–77
[2020-03-08] MEDS: PROPOFOL 10MG/ML 50ML 50 ML IV PRN ×3 (04:10→19:27)
[2020-03-08] MEDS: Sodium Bicarbonate 150 MEQ in IV D5W 1,000 ML IV PRN ×2 (04:10→13:46)
[2020-03-08 05:57] LABS: BASOPHILS % (AUTO) 0.2 % (0.0-2.0); EOSINOPHILS % (AUTO) 0.1 % (0.0-6.0); HEMATOCRIT 23 % (39-51); HEMOGLOBIN 7.4 g/dL (13.5-17.5); LYMPHOCYTES # (AUTO) 0.3 /CMM (0.8-4.8); LYMPHOCYTES % (AUTO) 1.4 % (20.0-44.0); MEAN CORPUSCULAR HGB CONC 33 g/dl (31.0-36.0); MEAN CORPUSCULAR VOLUME 90 fL (80-96); MONOCYTES # (AUTO) 0.3 /CMM (0.1-1.30); MONOCYTES % (AUTO) 1.1 % (2.0-12.0); NEUTROPHILS # (AUTO) 22.8 /CMM (1.8-8.9); NEUTROPHILS % (AUTO) 97.2 % (43.0-81.0); PLATELET COUNT (AUTO) 94 /CMM (150-450); WHITE BLOOD COUNT (AUTO) 23.4 K/uL (4.3-11.0)
[2020-03-08] MEDS: DILTIAZEM HCL 30 MG TABLET PO SCH ×2 (06:00)
[2020-03-08 06:37] LABS: ALANINE AMINOTRANSFERASE 841 U/L (12-78); ALKALINE PHOSPHATASE 162 U/L (46-116); ASPARTATE AMINOTRANSFERASE 2580 U/L (15-37); BILIRUBIN,TOTAL 1.2 mg/dL (0.2-1.0); CALCIUM, SERUM 6.2 mg/dL (8.5-10.1); CARBON DIOXIDE 21 mmol/L (21-32); CHLORIDE 104 mmol/L (98-107); CREATININE 4.6 mg/dL (0.6-1.3); GLUCOSE 225 mg/dL (74-106); MAGNESIUM 1.5 mg/dL (1.8-2.4); PHOSPHORUS 5.6 mg/dL (2.5-4.9); POTASSIUM 3.9 mmol/L (3.5-5.1); SODIUM SERUM 141 mmol/L (136-145); TOTAL PROTEIN, SERUM 3.8 g/dL (6.4-8.2)
[2020-03-08 06:40] LABS: UREA NITROGEN, BLOOD 93 mg/dL (7-18)
[2020-03-08 06:41] LABS: ALBUMIN 1.3 g/dL (3.4-5.0)
--- NOTE | 2020-03-08 07:48 | NUR ---
DIE CAST SUPERVISOR PATIETN SEDATED. WITH DIPRIVAN RUNNING AT 15 MCG . MECH VENT WITH PRESCRIBED SETTING BY DOCTOR. RNG TUBE PLACEMENT PATENT AND INTACT, TOLERATING WELL. PATIENT HAS SARAL REDNESS AND BRUSIES ALL OVER. RIJ TRIP LUM D5 WITH BI CAMP , NORE 0.3 MCG/KG /MIN. BENNIE MIDLINE TKO. BED LOCKED LOWEST POSITION CALL LIGHT WITH IN REACH ALL SAFETY MEASURE IMPLEMENTED PER HOSPITAL POLICY Addendum: 03/08/20 at 0758 by INOCENCIO FAM RN DIE CAST SUPERVISOR PATIENT SEDATED. WITH DIPRIVAN RUNNING AT 15 MCG . MECH VENT WITH PRESCRIBED SETTING BY DOCTOR. RNG TUBE PLACEMENT PATENT AND INTACT, TOLERATING WELL. ON MONITOR 60'S NSR PATIENT HAS SACRAL REDNESS AND BRUSIES ALL OVER. RIJ TRIP LUM D5 WITH BI CAMP , NORE 0.3 MCG/KG /MIN. BENNIE MIDLINE TKO. BED LOCKED LOWEST POSITION CALL LIGHT WITH IN REACH ALL SAFETY MEASURE IMPLEMENTED PER HOSPITAL POLICY
[2020-03-08 08:44] LABS: LYMPHOCYTES % (MANUAL) 1 % (16-48); MONOCYTES % (MANUAL) 3 % (0-11.0); NEUTROPHILS % (MANUAL) 96 (42-76)
--- NOTE | 2020-03-08 09:00 | NUR ---
[facility] CALLED PHARMACY FOR INSULIN REPLACEMENT AND BACTROBAN
[2020-03-08] MEDS: FLUOXETINE HCL 20 MG CAPSULE PO SCH (09:24)
[2020-03-08] MEDS: DOXYCYCLINE 100 MG in IV NS 0.9% 100 ML IV SCH ×2 (09:24→21:12)
[2020-03-08] MEDS: MEROPENEM 500 MG in IV NS 0.9% 50 ML IV SCH ×2 (09:24→19:52)
[2020-03-08] MEDS: BLOOD SUGAR DIAGNOSTIC 1 EACH STRIP IN SCH ×4 (09:24→21:27)
[2020-03-08] MEDS: Z GUARD REMEDY 2 OZ OINT TP SCH (09:25)
[2020-03-08] MEDS: methylPREDNISolone SOD SUCC 40 MG/ML VIAL IV SCH (09:25)
[2020-03-08 09:26] LABS: ABG BASE EXCESS -4.6 mmol/L; ABG OXYGEN SATURATION 96.7 % (92.0-98.5); ABG PH 7.424 (7.350-7.450); ABG PO2 91.3 mmHg (75.0-100.0); AaDO2 483.6 mmHg; COHb 0.9 % (0.5-1.5); MetHb 0.3 % (0.0-1.5); O2Hb 95.5 % (94.0-97.0); SITE, ABG Left Radial; VENT MODE, BG AC 24 650 +5 85%
[2020-03-08] MEDS: FERROUS SULFATE (325 MG) 325 MG/TAB TABLET PO SCH (09:26)
[2020-03-08] MEDS: APIXABAN 2.5 MG TABLET PO SCH ×2 (09:31→18:24)
[2020-03-08] MEDS: INSULIN REGULAR, HUMAN 100 UNIT/ML 3 ML VIAL SQ PRN ×3 (11:14→21:29)
[2020-03-08] MEDS: MUPIROCIN OINT 2% 22 GM TUBE SCH ×2 (13:56→21:15)
[2020-03-08] MEDS: IV NS 0.9% 250 ML IV PRN (15:22)
--- NOTE | 2020-03-08 18:57 | NUR ---
HOT STRIP FINISHER NO CHANGE IN CONDITION AT THIS TIME . PATIENT REMAINS STABLE. ET TUBE PATIENT WITH 7. AC 24 TV 650 FI02 PEEP 8 . PATIENT ON DIPRIVAN @ 15 MCG/KG/MIN. PATIENT STILL OPENS EYES WHEN NAME IS CALLED PATIENT HAS CURRY WITH 50 ML TEA COLOR , SKIN BRUSING ALL OVER WITH SACRAL REDNESS. PATIENT REPAINS NPO @ THIS TIME. PATIENT ON D5 BICARB @ 80 ML/HR . LEVO 0.3 MCG/KG AND NS TKO. NO ACUTE RESPIRATORY DISTRESS NOTED AT THIS TIME, NO PAIN. BED LOCKED LOWEST POSITION CALL LIGHT WITH IN REACH ALL SAFETY MEASURE IMPLEMENTED PER HOSPITAL POLICY .
[2020-03-08] MEDS: PANTOPRAZOLE 40 MG VIAL IV SCH (19:52)
[2020-03-08] MEDS ORDERED: VANCOMYCIN 0.75 GM in IV D5W 250 ML IV SCH (21:00)
[2020-03-09] VITALS (54 sets, daily range): BP systolic 62–174; BP diastolic 24–145
[2020-03-09] MEDS: NOREPINEPHRINE 32 MG in IV NS 0.9% 218 ML IV PRN ×2 (03:13→22:45)
[2020-03-09] MEDS: Sodium Bicarbonate 150 MEQ in IV D5W 1,000 ML IV PRN ×2 (03:29→16:55)
[2020-03-09] MEDS: PROPOFOL 10MG/ML 50ML 50 ML IV PRN ×5 (03:59→21:50)
[2020-03-09 05:05] LABS: BASOPHILS # (AUTO) 0.1 /CMM (0.0-0.2); BASOPHILS % (AUTO) 0.2 % (0.0-2.0); HEMATOCRIT 25 % (39-51); HEMOGLOBIN 8.3 g/dL (13.5-17.5); LYMPHOCYTES # (AUTO) 0.4 /CMM (0.8-4.8); LYMPHOCYTES % (AUTO) 1.3 % (20.0-44.0); MEAN CORPUSCULAR HGB CONC 33 g/dl (31.0-36.0); MEAN CORPUSCULAR VOLUME 88 fL (80-96); MONOCYTES # (AUTO) 1.2 /CMM (0.1-1.30); MONOCYTES % (AUTO) 4.2 % (2.0-12.0); NEUTROPHILS # (AUTO) 25.8 /CMM (1.8-8.9); NEUTROPHILS % (AUTO) 94.3 % (43.0-81.0); PLATELET COUNT (AUTO) 92 /CMM (150-450); RED BLOOD CELL COUNT(AUTO) 2.83 MIL/uL (4.5-6.0); WHITE BLOOD COUNT (AUTO) 27.4 K/uL (4.3-11.0)
[2020-03-09 05:50] LABS: ALANINE AMINOTRANSFERASE 753 U/L (12-78); ALKALINE PHOSPHATASE 226 U/L (46-116); ASPARTATE AMINOTRANSFERASE 1617 U/L (15-37); BILIRUBIN,TOTAL 1.2 mg/dL (0.2-1.0); CALCIUM, SERUM 6.2 mg/dL (8.5-10.1); CARBON DIOXIDE 26 mmol/L (21-32); CHLORIDE 98 mmol/L (98-107); CREATININE 4.8 mg/dL (0.6-1.3); GLUCOSE 124 mg/dL (74-106); MAGNESIUM 1.4 mg/dL (1.8-2.4); PHOSPHORUS 5.3 mg/dL (2.5-4.9); POTASSIUM 3.7 mmol/L (3.5-5.1); SODIUM SERUM 139 mmol/L (136-145); TOTAL PROTEIN, SERUM 4.2 g/dL (6.4-8.2)
[2020-03-09 05:55] LABS: ALBUMIN 1.4 g/dL (3.4-5.0); UREA NITROGEN, BLOOD 92 mg/dL (7-18)
[2020-03-09 06:37] LABS: BAND % (MANUAL) 8 % (0.0-5.0); LYMPHOCYTES % (MANUAL) 1 % (16-48); MONOCYTES % (MANUAL) 3 % (0-11.0); MYELOCYTES % 1 % (0-0); NEUTROPHILS % (MANUAL) 87 (42-76)
--- NOTE | 2020-03-09 07:25 | NUR ---
RN NOTES IN BED, RESTING COMFORTABLY. SEDATED. BREATHING EVEN AND UNLABORED. VENT SETTING TOLERATED WELL. NPO. ON DIPRIVAN DRIP STARTED AT 15MCG ADJUSTED BUT PATIENT'S BP IS NOT STABLE. NO SIGNIFICANT CHANGE OF CONDITION. ON LEVO DRIP AT 0.5MCG, BP STABLE. NO PHYSICAL MANIFESTATION OF PAIN OR DISCOMFORT. KEPT CLEAN AND DRY. ENDORSED TO NEXT SHIFT FOR CONTINUITY OF CARE
[2020-03-09] MEDS: FLUOXETINE HCL 20 MG CAPSULE PO SCH (08:06)
[2020-03-09] MEDS: FERROUS SULFATE (325 MG) 325 MG/TAB TABLET PO SCH (08:06)
[2020-03-09] MEDS: MEROPENEM 500 MG in IV NS 0.9% 50 ML IV SCH ×2 (08:07→21:50)
[2020-03-09] MEDS: APIXABAN 2.5 MG TABLET PO SCH ×2 (08:07→16:23)
[2020-03-09] MEDS: methylPREDNISolone SOD SUCC 40 MG/ML VIAL IV SCH (08:07)
[2020-03-09] MEDS: DOXYCYCLINE 100 MG in IV NS 0.9% 100 ML IV SCH (08:07)
[2020-03-09] MEDS: BLOOD SUGAR DIAGNOSTIC 1 EACH STRIP IN SCH ×4 (08:08→21:50)
[2020-03-09] MEDS: Z GUARD REMEDY 2 OZ OINT TP SCH (08:08)
[2020-03-09] MEDS: MUPIROCIN OINT 2% 22 GM TUBE SCH ×2 (08:08→21:51)
[2020-03-09 09:05] LABS: ABG BASE EXCESS -1.1 mmol/L; ABG OXYGEN SATURATION 91.8 % (92.0-98.5); ABG PCO2 27.3 mmHg (35.0-45.0); ABG PH 7.509 (7.350-7.450); ABG PO2 63.4 mmHg (75.0-100.0); AaDO2 334.4 mmHg; COHb 0.4 % (0.5-1.5); MetHb 0.3 % (0.0-1.5); O2Hb 91.2 % (94.0-97.0); PEEP,BG 8 cm H2O; SITE, ABG Right Radial; VT, ABG 600 mL
[2020-03-09] MEDS: INSULIN REGULAR, HUMAN 100 UNIT/ML 3 ML VIAL SQ PRN ×3 (13:12→23:07)
--- NOTE | 2020-03-09 19:25 | NUR ---
RN CLOSING NOTES PATIENT IS RESTING IN BED COMFORTABLY, DIPRIVAN RUNNING AT 25MCG, PATIENT IS STABLE, NO AGITATION NOTED. PATIENT IS ON LEVOPHED AT 0.4, BP IS STABLE AND WAS CLOSELY MONITORED AND TITRATED APPROPRIATELY NEEDED. PATIENT REMAINED NPO. NO ACUTE CHANGES DURING MY SHIFT. SAFETY WAS MAINTAINED, CALL LIGHT WITHIN REACH, ENDORSED TO PM NURSE TO CONTINUE CARE.
--- NOTE | 2020-03-09 20:00 | NUR ---
SETTER OUT RCD PT W/DX SEPSIS, PNA. PT IS SEDATED ON DIPRIVAN AT 25 MCG/KG/MIN; PT AT TIMES WAKES UP TO NAME BUT IS UNABLE TO FOLLOW COMMANDS. NSR ON MONITOR. ON LEVOPHED AT 0.4 MCG/KG/MIN TO MAINTAIN SBP>90. OG TUBE CLAMPED. RIT TLC PATENT AND WITH GOOD BLOOD RETURN. PT NOTED W/DTI TO SACRAL AND BACK AREA. PLACED MEPILEX AND REPOSITIONED PT.
[2020-03-09] MEDS ORDERED: VANCOMYCIN 0.75 GM in IV D5W 250 ML IV SCH (21:00)
[2020-03-09] MEDS: PANTOPRAZOLE 40 MG VIAL IV SCH (21:50)
[2020-03-10] VITALS (45 sets, daily range): BP systolic 59–139; BP diastolic 20–96
[2020-03-10] MEDS: PROPOFOL 10MG/ML 50ML 50 ML IV PRN ×5 (03:05→19:13)
--- NOTE | 2020-03-10 04:00 | NUR ---
WRITER PT NOTED WITH MUCOID RED BM. WILL CONTINUE TO MONITOR.
[2020-03-10 04:46] LABS: BASOPHILS # (AUTO) 0.1 /CMM (0.0-0.2); BASOPHILS % (AUTO) 0.5 % (0.0-2.0); EOSINOPHILS % (AUTO) 0.1 % (0.0-6.0); HEMATOCRIT 24 % (39-51); HEMOGLOBIN 8.3 g/dL (13.5-17.5); LYMPHOCYTES # (AUTO) 0.6 /CMM (0.8-4.8); LYMPHOCYTES % (AUTO) 2.3 % (20.0-44.0); MEAN CORPUSCULAR HGB CONC 34 g/dl (31.0-36.0); MEAN CORPUSCULAR VOLUME 88 fL (80-96); MONOCYTES # (AUTO) 1.3 /CMM (0.1-1.30); MONOCYTES % (AUTO) 5.4 % (2.0-12.0); NEUTROPHILS # (AUTO) 22.5 /CMM (1.8-8.9); NEUTROPHILS % (AUTO) 91.7 % (43.0-81.0); PLATELET COUNT (AUTO) 83 /CMM (150-450); RED BLOOD CELL COUNT(AUTO) 2.74 MIL/uL (4.5-6.0); WHITE BLOOD COUNT (AUTO) 24.5 K/uL (4.3-11.0)
[2020-03-10 04:59] LABS: CARBON DIOXIDE 29 mmol/L (21-32); CHLORIDE 94 mmol/L (98-107); CREATININE 4.9 mg/dL (0.6-1.3); GLUCOSE 158 mg/dL (74-106); MAGNESIUM 1.3 mg/dL (1.8-2.4); POTASSIUM 3.5 mmol/L (3.5-5.1); SODIUM SERUM 137 mmol/L (136-145)
[2020-03-10 05:17] LABS: CALCIUM, SERUM 5.6 mg/dL (8.5-10.1); UREA NITROGEN, BLOOD 93 mg/dL (7-18)
[2020-03-10 05:26] LABS: BAND % (MANUAL) 8 % (0.0-5.0); LYMPHOCYTES % (MANUAL) 3 % (16-48); MONOCYTES % (MANUAL) 5 % (0-11.0); NEUTROPHILS % (MANUAL) 84 (42-76)
[2020-03-10 05:58] LABS: C-REACTIVE PROTEIN 6.1 mg/dL (0.0-0.9)
[2020-03-10] MEDS: Sodium Bicarbonate 150 MEQ in IV D5W 1,000 ML IV PRN (08:15)
[2020-03-10] MEDS: FERROUS SULFATE (325 MG) 325 MG/TAB TABLET PO SCH (08:16)
[2020-03-10] MEDS: BLOOD SUGAR DIAGNOSTIC 1 EACH STRIP IN SCH ×4 (08:16→22:13)
[2020-03-10] MEDS: methylPREDNISolone SOD SUCC 40 MG/ML VIAL IV SCH (08:16)
[2020-03-10] MEDS: MEROPENEM 500 MG in IV NS 0.9% 50 ML IV SCH ×2 (08:16→20:35)
[2020-03-10] MEDS: MUPIROCIN OINT 2% 22 GM TUBE SCH ×2 (08:17→20:36)
[2020-03-10] MEDS: FLUOXETINE HCL 20 MG CAPSULE PO SCH (08:17)
[2020-03-10] MEDS: APIXABAN 2.5 MG TABLET PO SCH ×2 (08:17→17:00)
[2020-03-10] MEDS: Z GUARD REMEDY 2 OZ OINT TP SCH (08:18)
[2020-03-10 09:03] LABS: ABG BASE EXCESS 2.3 mmol/L; ABG PH 7.568 (7.350-7.450); ABG PO2 61.9 mmHg (75.0-100.0); AaDO2 264.2 mmHg; COHb 0.8 % (0.5-1.5); MetHb 0.3 % (0.0-1.5); SITE, ABG Right Radial; VENT MODE, BG AC 24 650 50% +8
--- NOTE | 2020-03-10 09:25 | NUR ---
WOUND CARE CONSULT: CHART REVIEWED WELL NURSING DOCUMENTATION AND PHOTOS. DISCUSSED PT CONDITION WITH RN. PER NURSING REPORT AND DOCUMENTATION/PHOTOS PT HAS MULTIPLE AREAS OF SKIN DISCOLORATION WITH SKIN TEARS TO UPPER EXTREMITIES AND INTACT DEEP TISSUE INJURIES TO SACRUM AND LOWER BACK WITH DISCOLORATION. LOW PLATELET COUNT NOTED. PT PREVIOUSLY MAXED ON 3 PRESSORS, NOW ON 1 PRESSOR. PT NOTED TO HAVE MULTIPLE CO-MORBIDITIES INCLUDING SEPTIC SHOCK, RESPIRATORY FAILURE, ON VENTILATOR, CHF, COVID 19, SEVERE MALNUTRITION AND ENCEPHALOPATHY. RECOMMENDATIONS MADE FOR SKIN PROTECTION AND WOUND CARE. DISCUSSED WITH NURSING STAFF. FIRST STEP LOW AIRLOSS MATTRESS ON ORDER. WILL SEE PRN. VOGT IN AGREEMENT WITH PLAN OF CARE.
[2020-03-10] MEDS ORDERED: IV D5/ 0.9% NACL 1,000 ML IV ONE (12:30)
[2020-03-10] MEDS ORDERED: Magnesium 1GM/D5W 100ML PREMIX PIGGYBACK IV ONE (14:30)
[2020-03-10] MEDS: Magnesium 1GM/D5W 100ML PREMIX 100 ML IV SCH ×4 (14:53→20:35)
[2020-03-10] MEDS: NOREPINEPHRINE 32 MG in IV NS 0.9% 218 ML IV PRN (16:18)
[2020-03-10] MEDS ORDERED: PHENYLEPHRINE 100 MG in IV NS 0.9% 240 ML IV PRN (19:30)
[2020-03-10] MEDS: PHENYLEPHRINE 100 MG in IV NS 0.9% 240 ML IV PRN (20:34)
[2020-03-10] MEDS: PANTOPRAZOLE 40 MG VIAL IV SCH (20:36)
--- NOTE | 2020-03-10 21:15 | NUR ---
RN CLOSING NOTES PATIENT IN CRITICAL CONDITION. BP IS CRITICALLY LOW AND TEMPERATURE IS AT 95.3. PATIENT IS WITH 5 WARM BLANKETS, SPOKE WITH DR KOVACS, ORDERED TO START TRAE DRIP. ORDERS CARRIED OUT, TITRATING APPROPRIATELY PER PROTOCOL. LAST BP WAS WITHIN THE PARAMETERS. PATIENT IS STARTED ON TRAE ORDERED, LEVOPHED MAXED OUT AT 1MCG. TITRATING APPROPRIATELY. ALL PATIENT NEEDS MET, SCHEDULED MEDS GIVEN ON TIME, SAFETY MAINTAINED, ENDORSED TO PM NURSE FOR CONTINUITY OF CARE.
[2020-03-10] MEDS: INSULIN REGULAR, HUMAN 100 UNIT/ML 3 ML VIAL SQ PRN (22:12)
--- NOTE | 2020-03-10 22:15 | NUR ---
STENCILING MACHINE TENDER RCD PT W/DX SEPSIS, COVID +. PT VERY SEDATED/NON RESPONSIVE ON PROPOFOL 2 25 MCG/KG/MIN, WILL TITRATE. NSR ON MONITOR W/VERY WEAK PULSES. INTUBATED 7.5 @ 23 W/VENT SETTINGA AC 24 600 60% +8. PT HAS A LARGE AMOUNT OF THICK BLOODY SECRETIONS. LEVOPHED @ 1 MCG/KG/MIN; NEOSYNEPHRINE @ 1.4 MCG/KG/MIN HR 61; UNABLE TO READ BP AUTOMATICALLY OR MANUALLY. CURRY CATH IN PLACE W/O URINE OUTPUT. FOUND BENNIE MIDLINE DISLODGED. PT IS DNR STATUS.
--- NOTE | 2020-03-10 22:30 | NUR ---
PRESS FEEDER BROOMCORN BLSW RESTRAINTS REMOVED AT THIS TIME.
--- NOTE | 2020-03-10 23:00 | NUR ---
SOIL TECHNICIAN DIPRIVAN TITRATED OFF AT THIS TIME.
--- NOTE | 2020-03-11 | NUR ---
SILICATOR PT DNR STATUS MAX ON LEVO AND TRAE W/ORDERS FROM DR KOVACS TO GIVE 500 ML NS BOLUS AND START VASOPRESSIN IN 30 MINS IF UNABLE TO OBTAIN BP.
--- NOTE | 2020-03-11 00:20 | NUR ---
HOUSE DETECTIVE PT AT THIS TIME.
[2020-03-11] MEDS ORDERED: IV NS 0.9% 500 ML IV ONE (00:30)
--- NOTE | 2020-03-11 00:30 | NUR ---
DIE POLISHER BODY RELEASED BY [facility]/W [facility]. REF # [id number]
--- NOTE | 2020-03-11 00:40 | NUR ---
HORSE BREEDER S/W SISTER DEANN KAUFMAN TO NOTIFY OF PTS ; SISTER WILL CALL MORTUARY.
--- NOTE | 2020-03-11 00:45 | NUR ---
TRANSPLANT CASE MANAGER RCD CALL FROM [facility] [phone] THEY WILL VESSEL ORDINARY SEAMAN BODY WITHIN TWO HOURS.
--- NOTE | 2020-03-11 02:00 | NUR ---
DENTAL LABORATORY ASSISTANT [facility]ODY [facility]
--- NOTE | 2020-03-11 06:43 | NUR ---
RN/ICU- RN-PRONOUNCEMENT OF : CODE STATUS"DO NOT RESUSCITATE". PT. UNRESPONSIVE TO ANY FORM OF STIMULI. PUPILS ARE FIXED AND DILATED. HEART TONES ARE ABSENT. EKG ASYSTOLE X 2 LEADS. RESPIRATIONS ABSENT.. PERIPHERAL PULSES ARE ABSENT. PT. PRONOUNCED [id number]. BY:HALEY ACUNA RN,BSN
[2020-03-11] MEDS ORDERED: VANCOMYCIN 0.75 GM in IV D5W 250 ML IV SCH (12:30)
== END 2020-03-11 00:20 | disposition expired | DRG 870 ==
LOC: ER 23:32 → TELE1 03-04 01:40 → TELE-TD 03-04 03:51 → TELE1 03-04 07:27 → ICU 03-05 21:26 → TELE1 03-05 21:35 → ICU 03-05 22:15
PROVIDERS: ADMIT Nurse Practitioner Acute Care; ATTEND Student in an Organized Health Care Education/Training Program
PROC: 05HY33Z Insertion of Infusion Device into Upper Vein, Percutaneous Approach (ICD-10-PCS; 2020-03-04)
PROC: 05HM33Z Insertion of Infusion Device into Right Internal Jugular Vein, Percutaneous Approach (ICD-10-PCS; 2020-03-05)
PROC: B543ZZA Ultrasonography of Right Jugular Veins, Guidance (ICD-10-PCS; 2020-03-05)
PROC: 5A1955Z Respiratory Ventilation, Greater than 96 Consecutive Hours (ICD-10-PCS; principal; 2020-03-06)
PROC: 0BH17EZ Insertion of Endotracheal Airway into Trachea, Via Natural or Artificial Opening (ICD-10-PCS; 2020-03-06)
PROC: 06HY33Z Insertion of Infusion Device into Lower Vein, Percutaneous Approach (ICD-10-PCS; 2020-03-10)
DX: A41.89 Other specified sepsis (principal); J12.89 Other viral pneumonia; U07.1 COVID-19; N17.0 Acute kidney failure with tubular necrosis; J96.01 Acute respiratory failure with hypoxia; J96.02 Acute respiratory failure with hypercapnia; G93.41 Metabolic encephalopathy; R65.21 Severe sepsis with septic shock; E43 Unspecified severe protein-calorie malnutrition; K72.00 Acute and subacute hepatic failure without coma; I13.0 Hypertensive heart and chronic kidney disease with heart failure and stage 1 through stage 4 chronic kidney disease, or unspecified chronic kidney disease; D68.59 Other primary thrombophilia; E87.2 Acidosis; Z66 Do not resuscitate; I46.9 Cardiac arrest, cause unspecified; I48.91 Unspecified atrial fibrillation; Z86.73 Personal history of transient ischemic attack (TIA), and cerebral infarction without residual deficits; I50.9 Heart failure, unspecified; F03.90 Unspecified dementia, unspecified severity, without behavioral disturbance, psychotic disturbance, mood disturbance, and anxiety; E11.22 Type 2 diabetes mellitus with diabetic chronic kidney disease; Z79.84 Long term (current) use of oral hypoglycemic drugs; D64.9 Anemia, unspecified; Z92.21 Personal history of antineoplastic chemotherapy; Z86.718 Personal history of other venous thrombosis and embolism; Z85.89 Personal history of malignant neoplasm of other organs and systems; Z79.01 Long term (current) use of anticoagulants; E86.0 Dehydration; F09 Unspecified mental disorder due to known physiological condition; E83.42 Hypomagnesemia; E83.51 Hypocalcemia; N18.3 Chronic kidney disease, stage 3 (moderate); Z85.9 Personal history of malignant neoplasm, unspecified; K21.9 Gastro-esophageal reflux disease without esophagitis; F32.9 Major depressive disorder, single episode, unspecified; I70.0 Atherosclerosis of aorta; D69.6 Thrombocytopenia, unspecified; K80.20 Calculus of gallbladder without cholecystitis without obstruction; Z22.322 Carrier or suspected carrier of Methicillin resistant Staphylococcus aureus; K76.0 Fatty (change of) liver, not elsewhere classified
CPT/HCPCS: 31720; 36410; 36415; 36600; 71045-TC; 76700-TC; 76770-TC; 80048-TC; 80053-TC; 80076-TC; 80162-TC; 80202-TC; 81000-TC; 82140-TC; 82248-TC; 82728-TC; 82803-TC; 82962-TC; 83605-TC; 83615-TC; 83735-TC; 83880; 84100-TC; 84443-TC; 84484-TC; 85025-TC; 85378-TC; 85652-TC; 85730-TC; 86140-TC; 86480; 87040-TC; 87070-TC; 87081-TC; 87086-TC; 87899; 94003-TC; A4216; A4349; A6253; C1750; C1751; C9113; G0378; J0171; J0461; J1200; J1815; J2185; J2250; J2370; J2543; J2920; J3010; J3262; J3370; J3475; J3490; J7030; J7040; J7050; J7060; J7070